=== PATIENT | female | born 1935 | race Caucasian/White ===

== ENCOUNTER 2018-12-28 13:52 | Emergency (ER) | payer MEDICARE, BC | END 2018-12-28 17:07 | disposition home or self-care (01) | LOC: FTE 13:52 | DX: S00.01XA Abrasion of scalp, initial encounter (principal); R51 Headache; W01.0XXA Fall on same level from slipping, tripping and stumbling without subsequent striking against object, initial encounter; Y92.9 Unspecified place or not applicable | CPT/HCPCS: 70450; 72125; 99284-25 ==